=== PATIENT | male | born 1985 | race Asian ===

== ENCOUNTER 2022-09-03 01:36 | Emergency (ER) | payer OTHER, SELFPAY ==
[2022-09-03 01:56] VITALS: BP 143/86; PULSE 126; RESP 16; TEMP 36.8; O2SAT 99; BMI 23.6
--- NOTE | 2022-09-03 02:37 | ED_ITS ---
HPI - General Adult General Chief complaint: General Medical Stated complaint: COVID +, n/v Time Seen by Provider: 09/03/22 02:34 Source: patient and family (, Natasha) Mode of arrival: ambulatory Limitations: no limitations History of Present Illness HPI narrative: 37 year old male patient presents emergency department for evaluation of multiple complaints. Patient states that he tested positive for COVID-19 on Saturday (4 days prior to evaluation) he states that he received 3 Moderna COVID- 19 vaccinations he states that on Saturday he was started on Paxlovid by his provider however he states that he has not been able to hold down the medications secondary to nausea and vomiting. The patient states that he has been having fevers with a T-max of a 103 degrees F. he has been taking Tylenol and ibuprofen but continues to developed fever and between doses. He states that he has had nausea and vomiting. He has had very little food and fluid intake over the last 24 hours. He states that he has a sore throat which she believes is mainly secondary to vomiting. He has had a cough which is productive of mucus and occasionally productive of blood. He denied chest pain or shortness of breath. He states he has been feeling very weak. States the symptoms are getting worse therefore came to the emergency department for evaluation. Related Data Previous Rx's Medication Instructions Recorded ketorolac 10 mg tablet 10 mg PO Q6H PRN pain or fever 5 09/03/22 days #20 tabs ondansetron 4 mg disintegrating 4 mg PO Q6-8H PRN nausea and 09/03/22 tablet vomiting #14 tabs Allergies Allergy/AdvReac Type Severity Reaction Status Date / Time No Known Allergies Allergy Verified 09/03/22 02:55 Review of Systems Review of Systems: Yes all other systems are reviewed and are negative [facility] Past Medical History [facility] Narrative: Past medical history: GERD. Past surgical history: None. Social history: He denies tobacco, alcohol and drug use. He is . His Natasha is your in the emergency department with him. She is COVID positive. Social History Social History Advance Directives: No Physical Exam ED Vital Signs: Vital Signs - 24 hr 09/03/22 01:56 09/03/22 03:50 Temperature 98.2 F Pulse Rate 126 H 93 Respiratory Rate 16 18 Blood Pressure 143/86 H 119/77 Pulse Oximetry 99 99 Oxygen Delivery Method Room Air Room Air BMI result Body Mass Index 23.6 Const Other: Patient is awake, alert, he has very soft voice which he states is due to vomiting, he does answer questions appropriately but defers to his to answer questions due to difficulty talking Orientation/consciousness: oriented to person and oriented to place HENRI Head: Yes normal to inspection, Yes normocephalic and Yes atraumatic Ears: external ears normal General nose exam: Normal external nose present Face and sinus: Yes normal facial exam Mouth: Normal oral and palatal mucosa present Throat: Yes posterior oropharynx normal Eyes General: appearance normal, both eyes and all related structures Neck Neck: Yes normal visual inspection, Yes no lymphadenopathy, Yes trachea midline and Yes supple Chest Chest palpation & inspection: normal inspection of the chest and normal palpation of entire chest wall Resp Effort & Inspection: normal respiratory effort and able to speak in complete sentences Auscultation: clear to auscultation bilaterally Cardio Rate: regular rate Rhythm: regular rhythm Heart sounds: S1 normal heart sound present, S2 normal heart sound present and no murmurs GI Inspection: Yes normal to inspection Palpation (GI): Soft to palpation, nontender and no guarding Auscultation: normal bowel sounds General: Yes no CVA tenderness Back/Spine/Pelvis Back: no CVA tenderness Skin General skin exam: no rashes or lesions noted Neuro General: oriented to person and oriented to place Cognition (Neuro): normal cognition Motor exam (neuro): 5/5 motor strength present throughout Extrem General: Yes normal to inspection Psych Appearance: grossly normal Speech and movement: Normal speech and movement present Affect: normal affect Medications Administered Discontinued Medications Generic Name Dose Route Start Last Admin Trade Name Matt PRN Reason Stop Dose Admin Lactated Ringer's 1,000 mls @ 999 mls/hr 09/03/22 03:00 09/03/22 03:16 Lr IV 09/03/22 04:00 999 mls/hr .Q1H1M BILLY Administration Lactated Ringer's 1,000 mls @ 999 mls/hr 09/03/22 03:00 09/03/22 03:16 Lr IV 09/03/22 04:00 999 mls/hr .Q1H1M BILLY Administration Ketorolac Tromethamine 15 mg 09/03/22 02:55 09/03/22 03:17 Ketorolac Tromethamine 15 Mg/Ml Vial IVPUSH 09/03/22 02:56 15 mg ONCE STA Administration Ondansetron HCl 4 mg 09/03/22 02:55 09/03/22 03:17 Ondansetron Hcl 4 Mg/2 Ml Vial IVPUSH 09/03/22 02:56 4 mg ONCE ONE Administration Medical Decision Making Medical Decision Making [facility] Narrative: 37-year-old male who was diagnosed with COVID-19 approximately 4 days prior, patient has received 3 Moderna COVID-19 vaccinations, he is on Paxlovid but has had difficulty taking the medication secondary to his nausea and vomiting. Patient has had high fevers, cough which is caused him to gag and vomit, nausea, vomiting and poor food and fluid intake over the past 1-2 days. Patient's vital signs revealed an elevated blood pressure of 143/86 and an elevated heart rate of 126 otherwise were unremarkable. Patient's physical examination was unremarkable. I ordered a CBC, CMP, lipase. I ordered treatment with lactated Ringer's x2 L, Toradol 15 mg IV and Zofran 4 mg IV. 0427: My independent interpretation patient's laboratory evaluation is as follows: [place] [address] the left shift 80% neutrophils and 8.7% lymphocytes.,CMP was normal except for an elevated AST, ALT and alk-phos of 54, 118 and 170 which I do not think is significant at this time and could be related to his viral infection. The patient is feeling better after the above treatment. At this time, given his clear lung exam and is normal O2 saturation I do not think that he has COVID-19 pneumonia. The patient states that the Toradol helped him more than the ibuprofen therefore he will be prescribed Toradol 10 mg every 6 hours as needed for fever and pain, while taking Toradol was advised not take ibuprofen. She was advised to continue taking Tylenol for his pain and fever. Is also prescribe Zofran ODT 4 mg every 8 hours as needed for nausea and vomiting. He was given printed and verbal instructions. He was given a work note as well. He was discharged home. Differential Diagnosis The differential diagnosis includes but is not limited to COVID-19 pneumonia, dehydration, volume depletion Lab Data 09/03/22 03:18 09/03/22 03:18 Labs: Lab Results 09/03/22 09/03/22 Range/Units 03:18 03:18 WBC 11.1 H (4.8-10.8) X10*3/uL RBC 6.00 H (4.60-5.80) X10*6/uL Hgb 14.9 (14.0-18.0) g/dl Hct 46.0 (42.0-52.0) % MCV 76.7 L (80.0-98.0) fL MCH 24.8 L (27.0-33.0) pg MCHC 32.4 (31.0-36.0) g/dl RDW 15.4 (11.0-16.0) % Plt Count 229 (160-400) X10*3/uL MPV 9.5 (9.4-12.4) fL Immature Gran % (Auto) 0.5 H (0.0-0.4) % Neut % (Auto) 80.8 H (45-73) % Lymph % (Auto) 8.7 L (20-40) % Grainger % (Auto) 9.8 (2-11) % Eos % (Auto) 0.0 (0-4) % Baso % (Auto) 0.2 (0-2) % Lymph # (Auto) 1.0 L (1.2-4.9) X10*3/uL Grainger # (Auto) 1.1 (0.1-1.2) X10*3/uL Eos # (Auto) 0.0 (0.0-0.4) X10*3/uL Baso # (Auto) 0.0 (0.0-0.2) X10*3/uL Abs Immat Gran (auto) 0.06 H (0.00-0.03) X10*3/uL Absolute Neuts (auto) 9.0 H (2.0-8.3) x10*3/uL Absolute Nucleated RBC 0.000 (0.0-0.012) X10*3/uL Nucleated RBC % (auto) 0.0 (0.0-0.2) /100WBC Sodium 142 (135-145) mmol/L Potassium 3.4 (3.3-5.1) mmol/L Chloride 108 (96-108) mmol/L Carbon Dioxide 20 L (22-29) mmol/L Anion Gap 17 (12-20) BUN 10 (9-16) mg/dL Creatinine 0.79 (0.5-1.4) mg/dL Estim Creat Clear Calc 129.2 Estimated GFR > 60 Random Glucose 113 (60-115) mg/dL Calcium 8.8 (8.4-10.2) mg/dL Total Bilirubin 0.7 (0.0-1.0) mg/dL AST 54 H (5-37) U/L ALT 118 H (0-40) U/L Alkaline Phosphatase 170 H (39-117) U/L Total Protein 6.9 (6.5-8.0) g/dL Albumin 4.2 (3.5-5.0) g/dL Lipase 18 (8-78) U/L Discharge Plan Discharge Clinical Impression: COVID-19 virus infection, Acute dehydration Vomiting Qualifiers: Vomiting type: unspecified Nausea presence: with nausea Qualified Code(s): R11.2 - Nausea with vomiting, unspecified Patient Disposition: Home, Self-Care Instructions: COVID-19 (Coronavirus Disease 2019) (ED) Additional Instructions: Take Zofran ODT 4 mg pills, 1 pill dissolved in your mouth every 8 hours as needed for nausea and vomiting. Take Tylenol (acetaminophen) 500 mg pills, 2 pills every 4 to 6 hours as needed for pain. Take Toradol (ketorolac) 10 mg pills, 1 pill every 6 hours as needed for pain or fever. While your taking Toradol do not take any other nonsteroidal anti- inflammatory medications such as ibuprofen, Motrin, Advil, Aleve or naproxen. Follow-up with your doctor in 2 days. Please return to the emergency department if your symptoms get worse or if you develop any symptoms that are concerning to you. Please see the work note, you will need to isolate for 5-7 days and you have to be asymptomatic for at least 24 hours before you can return to work. Prescriptions: New ketorolac 10 mg tablet 10 mg PO Q6H PRN (Reason: pain or fever) 5 Days Qty: 20 0RF ondansetron 4 mg tablet,disintegrating 4 mg PO Q6-8H PRN (Reason: nausea and vomiting) Qty: 14 0RF
[2022-09-03] MEDS: Lactated Ringers 1,000 ML 999 ML IV ×2 (03:16)
[2022-09-03] MEDS: ondansetron HCL 4 MG/2 ML VIAL IVPUSH (03:17)
[2022-09-03] MEDS: Ketorolac Tromethamine 15 MG/ML VIAL IVPUSH (03:17)
[2022-09-03 03:23] LABS: MANUAL DIFF FLAG NO
[2022-09-03 03:24] LABS: Basophils Percent Auto 0.2 % (0-2); Hemoglobin 14.9 g/dl (14.0-18.0); Imm Gran Abs Auto 0.06 X10*3/uL (0.00-0.03); Imm Gran Pct Auto 0.5 % (0.0-0.4); Lymphocytes Percent Auto 8.7 % (20-40); Mean Corpuscular HGB Conc 32.4 g/dl (31.0-36.0); Mean Corpuscular Hemoglobin 24.8 pg (27.0-33.0); Mean Corpuscular Volume 76.7 fL (80.0-98.0); Mean Platelet Volume 9.5 fL (9.4-12.4); Monocytes Absolute Auto 1.1 X10*3/uL (0.1-1.2); Monocytes Percent Auto 9.8 % (2-11); Neutrophils Percent Auto 80.8 % (45-73); Platelet Count 229 X10*3/uL (160-400); Red Cell Distribution Width 15.4 % (11.0-16.0); White Blood Count 11.1 X10*3/uL (4.8-10.8)
[2022-09-03 03:39] LABS: Alanine Aminotransferase 118 U/L (0-40); Albumin Level 4.2 g/dL (3.5-5.0); Alkaline Phosphatase 170 U/L (39-117); Anion Gap 17 (12-20); Aspartate Amino Transferase 54 U/L (5-37); Bilirubin Total 0.7 mg/dL (0.0-1.0); Blood Urea Nitrogen 10 mg/dL (9-16); Calcium 8.8 mg/dL (8.4-10.2); Carbon Dioxide 20 mmol/L (22-29); Chloride 108 mmol/L (96-108); Creatinine Clr Calc Pharmacy 129.2; Estimated Glomerular Filt Rate > 60; Glucose Random 113 mg/dL (60-115); Lipase 18 U/L (8-78); Potassium 3.4 mmol/L (3.3-5.1); Sodium 142 mmol/L (135-145); Total Protein 6.9 g/dL (6.5-8.0)
[2022-09-03 03:50] VITALS: BP 119/77; PULSE 93; RESP 18; O2SAT 99
== END 2022-09-03 05:03 | disposition home or self-care (01) ==
PROVIDERS: Emergency Provider Emergency Medicine Emergency Medical Services
DX: U07.1 COVID-19 (principal); R11.2 Nausea with vomiting, unspecified; E86.0 Dehydration
CPT/HCPCS: 36415; 80053; 83690; 85025; 96361; 96374; 96375; 99284; J1885; J2405